=== PATIENT | female | born 1930 ===

== ENCOUNTER 2019-04-02 19:41 | Inpatient (IN) ==
[2019-04-02] MEDS ORDERED: ALBUT/IPRATROP 3MG/0.5MG NEB 3 ML VIAL INH PRN (21:47)
[2019-04-02] MEDS ORDERED: ICU PROTOCOL FOR HYPERGLYCEMIA PRN (21:47)
[2019-04-02] MEDS ORDERED: PIPERACILL/TAZOBAC CONSULT ACTIVE PRN (21:52)
[2019-04-02] MEDS ORDERED: VANCOMYCIN CONSULT ACTIVE PRN (21:52)
--- NOTE | 2019-04-02 21:57 | History & Physical Report ---
Date of Service April 02, 2019 Assessment & Plan (1) Admitted to intensive care unit: Patient is admitted to the intensive care unit with septic shock, acute respiratory failure with hypoxia and multifocal pneumonia. Acute work-up as noted in HPI. (2) Acute respiratory failure with hypoxia: ABG ordered, and ventilator will be adjusted based on results. Present on Admission?: Yes (3) Septic shock: Continue Levophed infusion. Place empirically on vancomycin IV and Zosyn IV. CT of head, chest, abdomen pelvis ordered to look for source. Present on Admission?: Yes (4) Pneumonia: Multifocal pneumonia- Empiric vancomycin IV and Zosyn IV. Continue ventilator management. Serial ABGs. Present on Admission?: Yes (5) Diabetes type 2, uncontrolled: Placing on Accu-Cheks every 4 hours for hyperglycemic protocol Present on Admission?: Yes (6) Hypertension: Holding antihypertensives as patient is hypotensive at this time on Levophed drip Present on Admission?: Yes (7) Hypothyroid: Will place patient on IV levothyroxine in the a.m. Present on Admission?: Yes (8) GERD (gastroesophageal reflux disease): Placed on famotidine 20 mg IV every 12 hours Present on Admission?: Yes (9) Alzheimer disease: Noted Present on Admission?: Yes History of Present Illness Chief Complaint: The patient was accepted as a transfer from [facility] by daytime hospitalist with consult to city dispatcher regarding acute respiratory failure with septic shock on ventilator and Levophed infusion. Primary Care Provider: BRITT JARAMILLO The patient is an 88-year-old female with a past medical history including hypertension, hyperlipidemia, anxiety with depression, hypothyroidism, diabetes mellitus, and GERD who initially presented to [facility] emergency department. There she was found to be in septic shock with acute respiratory failure with hypoxia, was intubated and started on a Levophed drip, had a chest x-ray which suggested pneumonitis, and call was made to [facility] to the hospitalist service, who then verified acceptance of the patient by the city dispatcher to the ICU, and patient was transferred. Upon arrival to [facility], the patient was not nonresponsive, sedated, on ventilator and Levophed infusion. At this time, the following studies were ordered: CBC with differential, chemistry profile, magnesium, troponin, lactic acid, procalcitonin, ABG, stat portable chest x-ray to verify ET placement, CT of head without contrast, CT of the chest without contrast, and CT of abdomen and pelvis without contrast. Patient was empirically placed on vancomycin IV and Zosyn IV and started on a bicarbonate drip due to report of lactic acid prior to transfer of 7.1. Allergies Allergy/AdvReac Type Severity Reaction Status Date / Time clarithromycin [From Biaxin] Allergy Unknown Verified 04/02/19 23:12 shellfish derived Allergy Unknown Verified 04/02/19 23:12 Home Medications Home Medications Medication Instructions Recorded Confirmed Type acetaminophen 650 mg PO Q4 PRN 04/02/19 04/02/19 History amlodipine 5 mg PO DAILY 04/02/19 04/02/19 History aspirin 325 mg PO DAILY 04/02/19 04/02/19 History atorvastatin 20 mg PO HS 04/02/19 04/02/19 History bisacodyl [Dulcolax (bisacodyl)] 10 mg [place] DAILY PRN 04/02/19 04/02/19 History buspirone 5 mg PO BID 04/02/19 04/02/19 History cholecalciferol (vitamin D3) 1,000 unit PO DAILY 04/02/19 04/02/19 History cyanocobalamin (vitamin B-12) 1,000 mcg PO DAILY 04/02/19 04/02/19 History dextromethorphan-guaifenesin 1 tab PO Q12H 04/02/19 04/02/19 History [Mucinex DM] ipratropium-albuterol 3 ml INHALATION Q6 PRN 04/02/19 04/02/19 History levothyroxine 100 mcg PO DAILY 04/02/19 04/02/19 History linagliptin [Tradjenta] 5 mg PO DAILY 04/02/19 04/02/19 History magnesium hydroxide [Milk of 30 ml PO HS PRN 04/02/19 04/02/19 History Magnesia] meclizine 12.5 mg PO Q8 PRN 04/02/19 04/02/19 History omeprazole 20 mg PO DAILY 04/02/19 04/02/19 History ondansetron 4 mg PO Q6H PRN 04/02/19 04/02/19 History quetiapine 200 mg PO TID 04/02/19 04/02/19 History simethicone 160 mg PO BID PRN 04/02/19 04/02/19 History venlafaxine 150 mg PO DAILY 04/02/19 04/02/19 History Past Med/Surg History Medical History (Updated 04/03/19 @ 04:52 by Hank Zavala MD) Alzheimer disease Ambulatory dysfunction Anxiety, generalized Breast cancer Diabetes type 2, uncontrolled GERD (gastroesophageal reflux disease) History of gallbladder disease Hyperlipemia Hypertension Hypothyroid Social History Preferred Language: Welsh Communication Ability: Effective 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 HEENT--PERRL, EOMI, mucous membranes and oropharynx dry. Neck--supple. No JVD. No bruits. Thyroid normal, trachea midline, no adenopathy. Heart--tachycardic. No murmurs, rubs or gallops. Lungs--coarse breath sounds bilaterally. Abdomen--normal bowel sounds and soft. Nontender. Nondistended. Extremities--no cyanosis or clubbing. No edema. Dermatologic--normal skin turgor, normal color, no abnormal lymph nodes, no rash. Neurologic--limited exam Rheumatologic--limited exam Psychiatric--sedated and intubated Code Status & VTE Plan Code Status Full code VTE Prophylaxis Plan VTE Prophylaxis will be ordered: Yes Critical Care Time Critical Care Time: Yes Total Critical Care Time: 50 Total critical care time was 50 minutes PG Care Time/CCT Total # of Minutes Spent Total Time Spent with Patient: Total time spent is greater than 50% in coordination of care (as documented) at patient's floor/unit and/or counseling patient: Critical Care Time: Yes Total Critical Care Time: 50
[2019-04-02] MEDS ORDERED: FAMOTIDINE 20 MG in SYRINGE 3 ML IV SCH (22:00)
[2019-04-02] MEDS ORDERED: NOREPINEPHRINE BIT INJ 8 MG in DEXTROSE 5% 500 ML IV SCH (22:15)
--- NOTE | 2019-04-02 22:26 | XRay Report ---
XR chest 1V portable CLINICAL HISTORY: intubation COMPARISON STUDY: Chest radiograph April 01, 2019 at 6:56 PM. FINDINGS: Tip of nasogastric tube is within the gastric fundus. Tip of endotracheal tube is 1.5 cm ab ove the antoinette. There is no pneumothorax. Mild elevation of the right hemidiaphragm is noted. There a re mild bibasilar opacities. There is no lobar consolidation. Tip of left internal jugular central li ne projects over the proximal SVC or azygos vein. IMPRESSION: 1. Tip of endotracheal tube 1.5 cm above the antoinette. 2. Tip of left internal jugular central line projects over the proximal SVC or azygos vein. No pneumo thorax. 3. Bibasilar opacities which may reflect an infectious process or atelectasis. 4. Suspected trace right pleural effusion. ACT 112: Negative or not required by law. Electronically signed by: Donald Griffith M.D. 04/02/2019 10:24 PM
[2019-04-02] MEDS ORDERED: PATIENT'S ALLERGY INFO NEEDS ENTERED SCH (22:30)
[2019-04-02] MEDS: SODIUM BICARBONATE 8.4% 150 MEQ in WATER, STERILE 1,000 ML IV SCH (22:39)
[2019-04-02] MEDS ORDERED: fentaNYL citrate 100 MCG/2 ML VIAL ONE (22:44)
[2019-04-02] MEDS ORDERED: fentaNYL citrate 100 MCG/2 ML VIAL IV STA (22:46)
--- NOTE | 2019-04-02 22:49 | Critical Care Consultation ---
Date of Consultation April 02, 2019 Assessment & Plan (1) Septic shock: Reason Critically Ill: 88-year-old female admitted for septic shock with acute hypoxic respiratory failure requiring intubation Neuro - Sedated: Propofol and fentanyl drip Unable to assess mental status as patient has received sedation. Patient has history of Alzheimer's dementia. Any encephalopathy would likely be metabolic in nature considering sepsis/infection. Will obtain CT head and ammonia given LFTs for rule out. Cardiac - Septic shockpatient currently on multiple vasopressors, norepinephrine and vasopressin for maps greater than 65 -No known history of heart failure, will obtain transthoracic echocardiogram -A-line inserted for continuous BP monitoring -Lactate 8.3, metabolic acidosis with failed respiratory compensation -will start on bicarb drip, bolusing 500 mL Normosol -Continue broad-spectrum antibiotics, see ID below -Evidence of multisystem organ failure likely related to hypoperfusion -Obtaining CT abdomen, pelvis, chest to evaluate for additional source of infection given significance of sepsis A. fib RVRrate on arrival 140s, EKG confirmed A. fib RVR; no known history -Rate reduced with IV MTP, giving beta-rekha with caution considering hypotension; would proceed with amiodarone drip if need for multiple dose -Patient receiving 500 bolus Normosol, volume status currently hypovolemic -Troponin mildly elevated, likely demand ischemia, no ST elevation on EKG HTN will hold antihypertensives in the setting of hypotension Respiratory - Acute hypoxic respiratory failurelikely secondary to multifocal pneumonia -Patient's med history includes nebs, questionable COPD. No medical history known for respiratory disease, patient non-smoker -We will continue broad-spectrum antibiotics, see ID below -Patient currently intubated: AC VC 24/500/5/50 percent -AB.21//70/11, will adjust vent accordingly and trend ABGs -We will start DuoNeb, IV Solu-Medrol GI - GERDIV Pepcid Transaminitislikely shock liver in the setting of hypotension/septic shock -Patient with history of cholecystitis, cannot rule out this as possible source of infection -Abdominal exam compromised due to AMS/sedation, will obtain CT abdomen and hepatic ultrasound -Trend LFTs, follow-up ammonia RENAL/LYTES - Acute kidney injuryno known history of CKD, no baseline creatinine, CR 2.08 on this admission -Likely ATN secondary to hypotension -We will trend creatinine and monitor strict I's and O's -We will continue IV fluid resuscitation with goal of euvolemia -Would consider transfer for CRRT if progression to acute renal failure -Avoiding nephrotoxins - Foleystrict I's and O's ENDO - History of DM type IIhemoglobin A1c pending, currently euglycemic -ICU hyperglycemic protocol Hypothyroidismcontinue home dose Synthroid 100 mg daily -Follow-up a.m. TSH HEME - H&H stable, monitor with routine CBCs ID - Sepsislikely pulmonary source given CXR and acute respiratory failure -Cannot rule out abdominal source given degree of lactic acid elevation, elevated LFTs, acute cholangitis? -CT chest, abdomen, and pelvis and hepatic ultrasound pending -Lactate 8.3, procalcitonin pending, urinalysis pending, blood cultures pending -Influenza swab pending -MRSA pending -Currently on broad-spectrum antibiotics Zosyn and vancomycin, will narrow the sensitivities LINES/IV ACCESS - CVC, A-line, PIV's, ETT DVT PROPHYLAXIS - SCDs, heparin subcu I have personally spent 85 minutes of critical care time in the direct management of this patient. This is a life/limb threatening event. This includes time spent evaluating patient, direct bedside care, chart review, placing orders, interpretation of diagnostic studies, discussion with consultants, patient, and family members, as well as other required patient management activities. This time is exclusive of all separately billable procedures, and teaching time and separate from and in addition to any other critical care service time. Thank you for allowing us to participate in the care of this patient. Please refer to my attending physician's documentation for any further recommendations. (2) GERD (gastroesophageal reflux disease): (3) Alzheimer disease: (4) Hypothyroid: (5) Hypertension: (6) Diabetes type 2, uncontrolled: (7) Pneumonia: (8) Acute respiratory failure with hypoxia: (9) Multiple organ system failure: Supervising Physician Co-Signing Physician Notes I discussed the plan of care of the patient with Hayder Rosales on the phone, and agree with findings and plan as documented in the note. Patient was transferred from [facility] for ventilatory failure and shock. Patient was on vasopressors. Patient had a CT abdomen pelvis done which showed that patient's gallbladder was contributing to the sepsis. Surgeon Dr. Carson recommended the patient be transferred to a tertiary care center as patient was too unstable for surgery and she will need a cholecystostomy. Patient was eventually transferred to [facility] [place]. Family was made aware. I did not personally see the patient she was already transferred out of the ICU before. Case was discussed on the phone with me. History of Present Illness Attending Physician: Farhan Holguin, DO History of Present Illness Patient is an 88-year-old female who was a transfer from [facility] for decompensation of acute hypoxic respiratory failure requiring intubation. Patient has past medical history of Alzheimer's dementia, breast cancer, diabetes type 2, GERD, HLD, HTN, psychotic disorder with delusions. She currently lives at a snf and has been nonambulatory and incontinent since January when she was hospitalized for urinary tract infection. Daughter reports that the patient is normally verbal but confused. She was initially seen at outside hospital for shortness of breath and CXR was consistent with pneumonia and was transferred after intubation. On arrival to the ICU, patient was non-arousable but had been given ketamine in route. She was intubated and tachypneic and requiring norepinephrine drip for BP support. She had a central line on arrival and arterial line was soon placed. Repeat chest x-ray consistent with multifocal pneumonia and lactate elevated to 8. Will obtain CT head, chest, abdomen and pelvis. I had a discussion with the family in regard to CODE STATUS and patient prognosis. They are aware that the patient has a poor prognosis and is in multiorgan failure but would like to proceed as a full code. Patient is critically ill and to remain in ICU for now for further management. Allergies Allergy/AdvReac Type Severity Reaction Status Date / Time clarithromycin [From Biaxin] Allergy Unknown Verified 04/02/19 23:12 shellfish derived Allergy Unknown Verified 04/02/19 23:12 Home Medications Home Medications Medication Instructions Recorded Confirmed Type Mucinex DM 1 tab PO Q12H 04/02/19 04/02/19 History Tradjenta 5 mg PO DAILY 04/02/19 04/02/19 History acetaminophen 650 mg PO Q4 PRN 04/02/19 04/02/19 History aspirin 325 mg PO DAILY 04/02/19 04/02/19 History atorvastatin 20 mg PO HS 04/02/19 04/02/19 History bisacodyl [Dulcolax (bisacodyl)] 10 mg [place] DAILY PRN 04/02/19 04/02/19 History buspirone 5 mg PO BID 04/02/19 04/02/19 History cholecalciferol (vitamin D3) 1,000 unit PO DAILY 04/02/19 04/02/19 History cyanocobalamin (vitamin B-12) 1,000 mcg PO DAILY 04/02/19 04/02/19 History ipratropium-albuterol 3 ml INHALATION Q6 PRN 04/02/19 04/02/19 History levothyroxine 100 mcg PO DAILY 04/02/19 04/02/19 History magnesium hydroxide [Milk of 30 ml PO HS PRN 04/02/19 04/02/19 History Magnesia] meclizine 12.5 mg PO Q8 PRN 04/02/19 04/02/19 History omeprazole 20 mg PO DAILY 04/02/19 04/02/19 History ondansetron 4 mg PO Q6H PRN 04/02/19 04/02/19 History quetiapine 200 mg PO TID 04/02/19 04/02/19 History simethicone 160 mg PO BID PRN 04/02/19 04/02/19 History venlafaxine 150 mg PO DAILY 04/02/19 04/02/19 History heparin, porcine (PF) 5,000 unit SUBCUT Q12 #0.5 ml 04/03/19 Rx ipratropium-albuterol 3 ml INHALATION Q4H PRN #3 ml 04/03/19 Rx ipratropium-albuterol 3 ml NEB Q4R PRN #3 ml 04/03/19 Rx Patient History Medical History (Updated 04/03/19 @ 04:52 by Hank Zavala MD) Alzheimer disease Ambulatory dysfunction Anxiety, generalized Breast cancer Diabetes type 2, uncontrolled GERD (gastroesophageal reflux disease) History of gallbladder disease Hyperlipemia Hypertension Hypothyroid Social History Preferred Language: Yoruba Communication Ability: Effective 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 Beliefs That Will Affect Care: None Current Living Situation: Senior Living Feels Safe at Home: Declines to Answer Smoking Status: Unknown if ever smoked Hx Alcohol Use: No Hx Substance Use: No Review of Systems Review of Systems: Unobtainable due to endotracheal tube and Unobtainable due to reduced consciousness Physical Exam Eyes: PERRL, conjunctivae normal, anicteric sclerae ENMT: external ear and nose normal, oropharynx normal Neck: trachea midline, no thyromegaly Respiratory: Patient intubated, symmetrical chest wall movement, bilateral lung sounds coarse and rhonchi in all monteiro, patient tachypneic Cardiovascular: Patient Jay linares RVR on monitor, irregularly irregular rhythm, no edema, no JVD, pedal and radial pulses +1 bilaterally, good peripheral perfusion Gastrointestinal (Abdomen): Abdomen distended, semifirm, nontender, bowel sounds hypoactive Skin: no rashes, warm and dry Neurologic: Unable to assess Psychiatric: Unable to assess Genitourinary: Verónica present Coding Level of Care Code Critical Care 1st 30-74 mins Diagnoses Septic shock A41.9; R65.21 GERD (gastroesophageal reflux disease) K21.9 Alzheimer disease G30.9; F02.80 Hypothyroid E03.9 Hypertension I10 Diabetes type 2, uncontrolled E11.65 Pneumonia J18.9 Acute respiratory failure with hypoxia J96.01 Multiple organ system failure Time Spent (min) 85
--- NOTE | 2019-04-02 22:52 | Procedure Note ---
Procedure Note Date of Service April 02, 2019 Note ARTERIAL LINE PROCEDURE NOTE: Procedure: Arterial Line Placement Attending: Dr. Juan Antonio Ambriz Provider: RAMIREZ Mendez Indication: Monitoring on Pressors Anesthesia: None Line was placed emergently with consent implied. A time-out was completed verifying correct patient, procedure, site, positioning, and implant(s) or special equipment if applicable. Allens test was performed to ensure adequate perfusion. Patients right wrist was prepped and draped in the usual sterile fashion. Ultrasound guidance was used to aid needle placement. A 20g Arrow arterial line was introduced into the right radial artery. Catheter was threaded, and the needle was removed with appropriate blood return. Good waveform was observed. The patient tolerated the procedure well. Confirmation of placement with ultrasound. Blood Loss: Minimal Complications: None Procedural Ultrasound Guidance: Procedure Date: 04/02/2019 Indication: Arterial line placement Attending: Dr. Juan Antonio Ambriz Provider: RAMIREZ Mendez Artery Identified: YES Line confirmed in Artery with ultrasound: Yes Complications: NONE Patient tolerated procedure: WELL Coding CPT Codes Tubes, Drains, and Vasc Access - Tubes, Drains, and Vasc Access: [id number] Place Catheter In Artery ([id number]) Tubes, Drains, and Vasc Access - Tubes, Drains, and Vasc Access: [id number] Ultrasound Guidance For Vascular ([id number])
[2019-04-02 22:54] LABS: Hematocrit (blood only) 35.5 % (37-47); Hemoglobin 11.5 g/dL (12.0-16.0); Mean Corpuscular Hemoglobin 32.4 pg (25-34); Mean Platelet Volume 10.9 fL (7.4-10.4); Platelet Count 254 K/uL (130-400); RDW Coefficient of Variation 14.5 % (11.5-14.5); RDW Standard Deviation 53.5 fL (36.4-46.3); Red Blood Count 3.55 M/uL (4.2-5.4); White Blood Count 7.57 K/uL (4.8-10.8)
[2019-04-02] MEDS ORDERED: PROPOFOL 1,000 MG/100 ML VIAL IV SCH (23:03)
[2019-04-02] MEDS ORDERED: fentaNYL citrate 100 MCG/2 ML VIAL IV PRN (23:03)
[2019-04-02] MEDS ORDERED: fentaNYL DRIP 1,250 MCG/250 ML BAG IV SCH (23:03)
[2019-04-02 23:04] LABS: Mean Corpuscular Hgb Conc 32.4 g/dL (32-36)
[2019-04-02 23:08] LABS: iSTAT Arterial Blood Gas HCO3 11 meg/L (19-24); iSTAT Arterial Blood Gas pCO2 27 mmHg (35-46); iSTAT Arterial Blood Gas pH 7.21 (7.35-7.45); iSTAT Arterial Blood Gas pO2 70 mmHg (80-95); iSTAT Carbon Dioxide 12 mEq/l (24-31); iSTAT FiO2 40 %; iSTAT Site Art Line
[2019-04-02 23:15] LABS: BUN Creatinine Ratio 20.7 (10-20); Calcium 7.5 mg/dl (8.5-10.1); Creatinine Clr Calc Pharmacy 18.6 ml/min; Est GFR (African American) 24.3; Magnesium 1.9 mg/dl (1.8-2.4); Potassium 3.8 mmol/L (3.5-5.1)
[2019-04-02] MEDS ORDERED: AMIODARONE 360MG / 200ML D5W IV ONE (23:22)
[2019-04-02] MEDS ORDERED: AMIODARONE 150MG / 100ML D5W IV ONE (23:22)
[2019-04-02 23:23] LABS: Albumin Globulin Ratio 0.5 (0.9-2); Bilirubin,Total 2.2 mg/dl (0.2-1); Globulin 4.1 gm/dl (2.5-4.0); Total Protein 6.1 gm/dl (6.4-8.2); Troponin I 0.122 ng/ml (0-0.045)
[2019-04-02] MEDS ORDERED: METOPROLOL TARTRATE 1 MG/ML VIAL IV STA (23:23)
[2019-04-02] MEDS ORDERED: METOPROLOL TARTRATE 1 MG/ML VIAL IV ONE (23:23)
[2019-04-02] MEDS ORDERED: PIPERACILLIN/TAZOBACTAM 4.5 GM in DEXTROSE 5% 100 ML IV ONE (23:30)
[2019-04-02] MEDS ORDERED: NORMOSOL-R 1,000 ML IV SCH (23:30)
[2019-04-02] MEDS ORDERED: VANCOMYCIN HCL 1,250 MG in SODIUM CHLORIDE 0.9% 250 ML IV ONE (23:30)
[2019-04-02] MEDS ORDERED: NORMOSOL-R 500 ML IV ONE (23:32)
[2019-04-02] MEDS ORDERED: VASOPRESSIN 20 UNITS in 0.9 % SODIUM CHLORIDE 100 ML IV SCH (23:32)
[2019-04-02 23:39] LABS: Basophils # (auto) 0.01 K/uL (0-0.2); Basophils % (auto) 0.1 %; Echinocytes 1+; Giant Platelets 1+; Immature Granulocytes # (auto) 0.02 K/uL (0.00-0.02); Immature Granulocytes % (auto) 0.3 %; Lymphocytes # (auto) 0.51 K/uL (1.2-3.4); Lymphocytes % (auto) 6.7 %; Monocytes # (auto) 0.38 K/uL (0.11-0.59); Neutrophils # (auto) 6.65 K/uL (1.4-6.5); Neutrophils % (auto) 87.9 %
[2019-04-03] MEDS ORDERED: ALBUT/IPRATROP 3MG/0.5MG NEB 3 ML VIAL NEB PRN (00:54)
[2019-04-03] MEDS ORDERED: methylPREDNISolone 40 MG in SYRINGE 0 ML IV STA (00:54)
[2019-04-03 02:42] LABS: Influenza A virus by PCR Neg for Influ A (Neg); Influenza B virus by PCR Neg for Influ B (Neg)
[2019-04-03 02:43] LABS: iSTAT Arterial Blood Gas HCO3 12 meg/L (19-24); iSTAT Arterial Blood Gas pCO2 26 mmHg (35-46); iSTAT Arterial Blood Gas pH 7.28 (7.35-7.45); iSTAT Arterial Blood Gas pO2 84 mmHg (80-95); iSTAT Carbon Dioxide 13 mEq/l (24-31); iSTAT FiO2 60 %; iSTAT Site Art Line
--- NOTE | 2019-04-03 03:38 | Surgery Consultation ---
Date of Consultation April 03, 2019 Assessment & Plan (1) Multiple organ system failure: pt is a 88 year-old female who was admitted to ICU for acute respiratory failure , multiple organs failure, IMP: acute respiratory failure, multiple organs failure, cholelithiasis, cholangitis base on pt's comorbidity, pt's prognosis is poor, high risks for surgery, D/W surgery treatment option, percutaneous cholecystostomy drainage by interventional radiologist, pt's family members request to transfer higher level care, D/W ICU attending. GI consult for possible ERCP, bedside U/S study for liver and gallbladder repeat labs in 6 hours iv antibiotic will F/U (2) Acute respiratory failure with hypoxia: (3) Septic shock: (4) Cholelithiasis: (5) Cholangitis: History of Present Illness Attending Physician: Farhan Holguin, DO History of Present Illness Patient is an 88-year-old female who was a transfer from [facility] for decompensation of acute hypoxic respiratory failure requiring intubation. Patient has past medical history of Alzheimer's dementia, breast cancer, diabetes type 2, GERD, HLD, HTN, psychotic disorder with delusions. She currently lives at a long term and has been nonambulatory and incontinent since January when she was hospitalized for urinary tract infection. Daughter reports that the patient is normally verbal but confused. She was initially seen at outside hospital for shortness of breath and CXR was consistent with pneumonia and was transferred after intubation. On arrival to the ICU, patient was non-arousable but had been given ketamine in route. She was intubated and tachypneic and requiring norepinephrine drip for BP support. She had a central line on arrival and arterial line was soon placed. Repeat chest x-ray consistent with multifocal pneumonia and lactate elevated to 8. Will obtain CT head, chest, abdomen and pelvis. I had a discussion with the family in regard to CODE STATUS and patient prognosis. They are aware that the patient has a poor prognosis and is in multiorgan failure but would like to proceed as a full code. Patient is critically ill and to remain in ICU for now for further management. I ( Casa aCrson MD) got a call for consult cholelithiasis. I reviewed pt's H/P, labs, CT scan at pt's bedside with pt's daughter and son. pt is intubated now. Allergies Allergy/AdvReac Type Severity Reaction Status Date / Time clarithromycin [From Biaxin] Allergy Unknown Verified 04/02/19 23:12 shellfish derived Allergy Unknown Verified 04/02/19 23:12 Home Medications Home Medications Medication Instructions Recorded Confirmed Type acetaminophen 650 mg PO Q4 PRN 04/02/19 04/02/19 History amlodipine 5 mg PO DAILY 04/02/19 04/02/19 History aspirin 325 mg PO DAILY 04/02/19 04/02/19 History atorvastatin 20 mg PO HS 04/02/19 04/02/19 History bisacodyl [Dulcolax (bisacodyl)] 10 mg ND DAILY PRN 04/02/19 04/02/19 History buspirone 5 mg PO BID 04/02/19 04/02/19 History cholecalciferol (vitamin D3) 1,000 unit PO DAILY 04/02/19 04/02/19 History cyanocobalamin (vitamin B-12) 1,000 mcg PO DAILY 04/02/19 04/02/19 History dextromethorphan-guaifenesin 1 tab PO Q12H 04/02/19 04/02/19 History [Mucinex DM] ipratropium-albuterol 3 ml INHALATION Q6 PRN 04/02/19 04/02/19 History levothyroxine 100 mcg PO DAILY 04/02/19 04/02/19 History linagliptin [Tradjenta] 5 mg PO DAILY 04/02/19 04/02/19 History magnesium hydroxide [Milk of 30 ml PO HS PRN 04/02/19 04/02/19 History Magnesia] meclizine 12.5 mg PO Q8 PRN 04/02/19 04/02/19 History omeprazole 20 mg PO DAILY 04/02/19 04/02/19 History ondansetron 4 mg PO Q6H PRN 04/02/19 04/02/19 History quetiapine 200 mg PO TID 04/02/19 04/02/19 History simethicone 160 mg PO BID PRN 04/02/19 04/02/19 History venlafaxine 150 mg PO DAILY 04/02/19 04/02/19 History Patient History Medical History (Updated 04/03/19 @ 03:43 by Casa Carson MD) Alzheimer disease Ambulatory dysfunction Anxiety, generalized Breast cancer Diabetes type 2, uncontrolled GERD (gastroesophageal reflux disease) History of gallbladder disease Hyperlipemia Hypertension Hypothyroid Social History Preferred Language: Malay Communication Ability: Effective Aids Nurse Required: No Beliefs That Will Affect Care: None Current Living Situation: Detention Other Information That Helps Us Care for You: No Feels Safe at Home: Declines to Answer Smoking Status: Unknown if ever smoked Hx Alcohol Use: No Hx Substance Use: No Review of Systems Review of Systems: All systems reviewed & are unremarkable except as noted in HPI & below DM, Alzheimer disease Physical Exam Constitutional: pt is intubated on vent Neck: trachea midline, no thyromegaly Respiratory: normal respiratory effort, lungs clear to auscultation pt is intubated Cardiovascular: RRR, no murmur, no edema Gastrointestinal (Abdomen): Percussion/Palpation: abdomen soft no distend, BS + Skin: no rashes, warm and dry Results & Data Vital Signs (Past 12 Hours) Vital Signs Pulse Resp BP Pulse Ox 04/03/19 00:56 121 H 30 H 98 04/02/19 23:47 153 H 110/58 L 04/02/19 23:38 141 H 30 H 94 04/02/19 23:31 158 H 24 90 Laboratory Results Abnormal lab results 04/02/19 04/02/19 04/02/19 Range/Units 22:00 22:37 22:37 RBC 3.55 L (4.2-5.4) M/uL Hgb 11.5 L (12.0-16.0) g/dL Hct 35.5 L (37-47) % RDW Std Deviation 53.5 H (36.4-46.3) fL MPV 10.9 H (7.4-10.4) fL Neut # (Auto) 6.65 H (1.4-6.5) K/uL Lymph # (Auto) 0.51 L (1.2-3.4) K/uL POC pH (7.35-7.45) POC pCO2 (35-46) mmHg POC pO2 (80-95) mmHg POC HCO3 (19-24) veronica/L POC Total CO2 (24-31) mEq/l POC Base Excess (-9-1.8) veronica/L Chloride 110 H (98-107) mmol/L Carbon Dioxide 13 L (21-32) mmol/L Anion Gap 17.0 H (3-11) BUN 42 H (7-18) mg/dl Creatinine 2.05 H (0.6-1.2) mg/dl BUN/Creatinine Ratio 20.7 H (10-20) Glucose 115 H (70-99) mg/dl POC Glucose (other) (70-99) mg/dl Lactate (0.4-2.0) mmol/L Calcium 7.5 L (8.5-10.1) mg/dl Total Bilirubin 2.2 H (0.2-1) mg/dl AST 1324 H (15-37) U/L ALT 643 H (12-78) U/L Alkaline Phosphatase 339 H (45-117) U/L Troponin I 0.122 H* (0-0.045) ng/ml Total Protein 6.1 L (6.4-8.2) gm/dl Albumin 2.0 L (3.4-5.0) gm/dl Globulin 4.1 H (2.5-4.0) gm/dl Albumin/Globulin Ratio 0.5 L (0.9-2) Lipase 659 H (73-393) U/L Procalcitonin (0-0.5) ng/ml Nasal Screen MRSA (PCR) Positive A (Negative) 04/02/19 04/02/19 04/02/19 Range/Units 22:37 22:40 22:53 RBC (4.2-5.4) M/uL Hgb (12.0-16.0) g/dL Hct (37-47) % RDW Std Deviation (36.4-46.3) fL MPV (7.4-10.4) fL Neut # (Auto) (1.4-6.5) K/uL Lymph # (Auto) (1.2-3.4) K/uL POC pH 7.21 L (7.35-7.45) POC pCO2 27 L (35-46) mmHg POC pO2 70 L (80-95) mmHg POC HCO3 11 L (19-24) veronica/L POC Total CO2 12 L (24-31) mEq/l POC Base Excess -17.0 L (-9-1.8) veronica/L Chloride (98-107) mmol/L Carbon Dioxide (21-32) mmol/L Anion Gap (3-11) BUN (7-18) mg/dl Creatinine (0.6-1.2) mg/dl BUN/Creatinine Ratio (10-20) Glucose (70-99) mg/dl POC Glucose (other) (70-99) mg/dl Lactate 8.3 H* (0.4-2.0) mmol/L Calcium (8.5-10.1) mg/dl Total Bilirubin (0.2-1) mg/dl AST (15-37) U/L ALT (12-78) U/L Alkaline Phosphatase (45-117) U/L Troponin I (0-0.045) ng/ml Total Protein (6.4-8.2) gm/dl Albumin (3.4-5.0) gm/dl Globulin (2.5-4.0) gm/dl Albumin/Globulin Ratio (0.9-2) Lipase (73-393) U/L Procalcitonin 23.72 H (0-0.5) ng/ml Nasal Screen MRSA (PCR) (Negative) 04/02/19 04/03/19 Range/Units 23:52 02:29 RBC (4.2-5.4) M/uL Hgb (12.0-16.0) g/dL Hct (37-47) % RDW Std Deviation (36.4-46.3) fL MPV (7.4-10.4) fL Neut # (Auto) (1.4-6.5) K/uL Lymph # (Auto) (1.2-3.4) K/uL POC pH 7.28 L (7.35-7.45) POC pCO2 26 L (35-46) mmHg POC pO2 (80-95) mmHg POC HCO3 12 L (19-24) veronica/L POC Total CO2 13 L (24-31) mEq/l POC Base Excess -15.0 L (-9-1.8) veronica/L Chloride (98-107) mmol/L Carbon Dioxide (21-32) mmol/L Anion Gap (3-11) BUN (7-18) mg/dl Creatinine (0.6-1.2) mg/dl BUN/Creatinine Ratio (10-20) Glucose (70-99) mg/dl POC Glucose (other) 131 H (70-99) mg/dl Lactate (0.4-2.0) mmol/L Calcium (8.5-10.1) mg/dl Total Bilirubin (0.2-1) mg/dl AST (15-37) U/L ALT (12-78) U/L Alkaline Phosphatase (45-117) U/L Troponin I (0-0.045) ng/ml Total Protein (6.4-8.2) gm/dl Albumin (3.4-5.0) gm/dl Globulin (2.5-4.0) gm/dl Albumin/Globulin Ratio (0.9-2) Lipase (73-393) U/L Procalcitonin (0-0.5) ng/ml Nasal Screen MRSA (PCR) (Negative) Diagnostic Findings CT scan abd + pelvis- IMP: cholelithiasis with gallbladder distention, complex left adnexal mass, complex right renal mass.
[2019-04-03 04:33] LABS: Hematocrit (blood only) 34.1 % (37-47); Hemoglobin 10.9 g/dL (12.0-16.0); Mean Corpuscular Hemoglobin 31.6 pg (25-34); Mean Corpuscular Volume 98.8 fL (80-100); Mean Platelet Volume 10.9 fL (7.4-10.4); Platelet Count 229 K/uL (130-400); RDW Coefficient of Variation 14.5 % (11.5-14.5); RDW Standard Deviation 52.5 fL (36.4-46.3); Red Blood Count 3.45 M/uL (4.2-5.4); White Blood Count 6.44 K/uL (4.8-10.8)
[2019-04-03 04:42] LABS: INR 1.6 (0.9-1.1); Partial Thromboplastin Ratio 1.5; Partial Thromboplastin Time 40.5 Seconds (21.0-31.0); Prothrombin Time 15.6 Seconds (9.0-12.0)
[2019-04-03 04:56] LABS: Albumin Level 1.8 gm/dl (3.4-5.0); BUN Creatinine Ratio 22.3 (10-20); Bilirubin Direct 2.5 mg/dl (0-0.2); Calcium 7.5 mg/dl (8.5-10.1); Creatinine Clr Calc Pharmacy 19.3 ml/min; Est GFR (African American) 25.3; Est GFR (Non-African American) 21.9; Magnesium 2.1 mg/dl (1.8-2.4)
[2019-04-03 05:06] LABS: Basophils # (auto) 0.01 K/uL (0-0.2); Basophils % (auto) 0.2 %; Echinocytes 1+; Immature Granulocytes # (auto) 0.01 K/uL (0.00-0.02); Immature Granulocytes % (auto) 0.2 %; Lymphocytes # (auto) 0.42 K/uL (1.2-3.4); Lymphocytes % (auto) 6.5 %; Monocytes # (auto) 0.37 K/uL (0.11-0.59); Monocytes % (auto) 5.7 %; Neutrophils # (auto) 5.63 K/uL (1.4-6.5); Neutrophils % (auto) 87.4 %
[2019-04-03 05:09] LABS: Bilirubin,Total 3.5 mg/dl (0.2-1); Phosphorus 5.3 mg/dl (2.5-4.9); Thyroid Stimulating Hormone 0.904 uIu/ml (0.300-4.500); Total Protein 5.3 gm/dl (6.4-8.2)
[2019-04-03 05:34] LABS: Estimated Average Glucose 105 mg/dl; Hemoglobin A1C 5.3 % (4.5-5.6)
[2019-04-03] MEDS: SODIUM BICARBONATE 8.4% 150 MEQ in WATER, STERILE 1,000 ML IV SCH (06:23)
--- NOTE | 2019-04-03 06:37 | Ultrasound Report ---
US duplex portal hepatic veins HISTORY: 88 years-old Female elevated LFTs acutely elevated LFTs COMPARISON: CT abdomen and pelvis of same day. TECHNIQUE: Multiple real-time sonographic images of the hepatic vasculature was obtained assessing gr ayscale appearance, color and spectral flow FINDINGS: Hepatic and portal veins are patent. Phasic waveforms within the hepatic veins. The portal vein demon strates hepatopedal flow. Limited study secondary to patient condition. Partially obscuring bowel gas also limits the study. IMPRESSION: Patent hepatic and portal veins. ACT 112: Negative or not required by law. The above report was generated using voice recognition software. It may contain grammatical, syntax o r spelling errors. Electronically signed by: Rhett Campuzano M.D. 04/03/2019 6:36 AM
--- NOTE | 2019-04-03 06:39 | CT Scan Report ---
CT head/brain wo con CLINICAL HISTORY: lactic acidosis, respiratory failure CHANGE IN MENTAL STATUS COMPARISON STUDY: No previous studies for comparison. TECHNIQUE: Axial CT of the brain is performed from the vertex to the skull base. IV contrast was not administered for this examination. A dose lowering technique was utilized adhering to the principles of ALARA. CT DOSE: FINDINGS: No intra or extra-axial mass lesions are visualized. There is no CT evidence of acute cortical infarc tion. There is no evidence of midline shift. There is no acute hemorrhage. No calvarial fractures ar e visualized. There are moderate white matter hypodensities likely on a small vessel basis. There is no evidence of pathologic ventricular dilatation. There is a right maxillary sinus air-fluid level. There is a right mastoid effusion. IMPRESSION: 1. No acute intracranial findings 2. Right maxillary sinus air-fluid level. Right mastoid effusion. Correlate clinically in regards to acute sinusitis. ACT 112: Negative or not required by law. Electronically signed by: Everardo Briceno M.D. 04/03/2019 6:38 AM
--- NOTE | 2019-04-03 06:47 | Communication Note ---
Date of Service: April 03, 2019 Update from previous addendum. [facility] was contacted, considering that patient has previously been treated at [place] and has [facility] insurance. I spoke with the nurse practitioner for the ICU and they agreed to accept the patient. Family was then notified of potential change and agreed that would [facility] Considering there would not be no delay in transfer decision was made to proceed with transfer to [facility]. Patient now transferred via [facility] to [facility]
--- NOTE | 2019-04-03 07:01 | CT Scan Report ---
CT chest wo con CLINICAL HISTORY: 88 years-old Female presenting with respiratory failure on vent. TECHNIQUE: Multidetector CT imaging of the chest was performed without the use of intravenous contras t. IV contrast: None. One or more dose lowering techniques were used consistent with the principles o f ALARA (as low as reasonably achievable), including automatic exposure control, mA or kV adjustment to individual patient size, and/or use of iterative reconstruction. COMPARISON: Chest x-ray from the previous day. CT DOSE (mGy.cm): The estimated cumulative dose is 1441.38 mGy.cm. FINDINGS: Operational Intelligence Analyst topogram: Endotracheal tube terminates in the midthoracic trachea. Nasogastric tube terminates in the gastric fundus. Left internal jugular central venous catheter terminates at the upper SVC. Soft tissues: Nodular enlargement of the left lobe of the thyroid. The right lobe may be absent. Left internal jugular central venous catheter terminates at the upper SVC. Endotracheal tube terminates i n the midthoracic trachea. Nasogastric tube terminates at the gastric body/fundus, sidehole within th e gastric lumen. No axillary, supraclavicular, or mediastinal lymphadenopathy. Evaluation of the jess limited without intravenous contrast. Extensive atherosclerosis of the thoracic aorta. Top normal he art size. Severe coronary artery and moderate aortic valve calcification. No pericardial or pleural e ffusion. Trace perihepatic ascites. The gallbladder is distended. Gallstones suspected. Probable hepa tic cyst in the left hepatic lobe. Lungs and airways: No pneumothorax. Allowing for the expiratory phase of respiration, central airways patent. Respiratory motion artifact degrades evaluation of the lung parenchyma. There is diffuse bro nchiectasis. Prominent mosaic attenuation. Pulmonary arteries are not significantly enlarged relative to adjacent bronchi. Trace interlobular septal thickening. Extensive dense peribronchovascular conso lidation with a lower lobe predominance. Musculoskeletal: Degenerative changes of the spine. Osteopenia. Moderate compression deformity of T5 with mild compression deformities of T1, T2, and T10-L1. IMPRESSION: 1. Extensive bronchiectasis with lower lobe predominant peribronchovascular consolidation. These fin dings favor cryptogenic organizing pneumonia or chronic aspiration. 2. Evaluation limited by respiratory motion artifact. 3. Appropriately positioned lines and tubes. 4. Distended gallbladder with suspected gallstones. If there is concern for cholecystitis, right upp er quadrant ultrasound would be recommended. 5. Multiple compression deformities of the thoracic spine with underlying osteopenia. These are age indeterminate. ACT 112: Negative or not required by law. Electronically signed by: Long Dave M.D. 04/03/2019 7:00 AM
--- NOTE | 2019-04-03 07:24 | CT Scan Report ---
ABDOMEN AND PELVIS CT WITHOUT CONTRAST HISTORY: Acute respiratory failure with lactic acidosis lactic acidosis, respiratory failure TECHNIQUE: Multiaxial CT images of the abdomen and pelvis were performed without contrast. A dose lo wering technique was utilized adhering to the principles of ALARA. COMPARISON STUDY: Chest CT of same day FINDINGS: Bibasilar bronchiectasis with bronchovascular distribution of consolidation is partially imaged. Mosa ic attenuation suggests associated air trapping. Subpleural reticular opacities suggest concomitant f ibrotic changes. Trace right pleural effusion is suggested. Limited exam without the use of IV contra st, mild patient motion and positioning of the upper extremities. Imaged inferior cardiac chambers ar e mildly enlarged. Extensive coronary arterial, thoracic and abdominal with branch vessel calcificati ons are noted. Abdominal aortic tortuosity. Irregular calcifications within the infrarenal abdominal aorta are noted. Gallbladder is distended. Increased attenuation layering within the gallbladder lumen suggests sludge versus cholelithiasis. Additionally, there is equivocal gallbladder wall thickening with trace peric holecystic edema. 3 mm area of increased attenuation within the region of the common bile duct may re flect choledocholithiasis. Mild prominence of the common bile duct. 1.4 cm hypodensity of the left he patic lobe on image 22 series 5 is suggestive of a probable cyst. Coarse calcification of the posteri or right hepatic lobe. Diminutive spleen. Mild generalized pancreatic atrophy. Mild thickening of the adrenal glands. Mild nonspecific bilateral perinephric stranding. Complex cystic lesion of the inferior pole right ki dney measures up to 4.4 x 4.5 x 4.5 cm and contains thin partially calcified septations along its sup erior margin. 1.7 cm cyst of the interpolar right kidney. No ureteral calculi or obstructive uropathy . There is a large bilobed mixed attenuating prominently fatty attenuating structure of the left onel pelvis measuring up to 6.1 x 5.7 x 8.3 cm with soft tissue attenuation and areas of marginal calcific ation suggestive of a dropped cell tumor. Sanches catheter noted within a decompressed urinary bladder. Mild wall thickening of the distal esophagus. Small hiatal hernia. Enteric tube distal tip terminates within the proximal to mid gastric body. There are several nondilated fluid-filled loops of small bonnie wel. Moderate fecal retention. Mild wall thickening of the ascending and transverse colon with mild p ericolonic stranding. Appendix not visualized. Trace abdominal pelvic ascites. Mild diastases recti. Demineralized appearance of the bones. Degenerative changes of the spine, pelvis and hips. 40% superi or endplate compression deformity of the L1 vertebral body with 25% superior endplate compression def ormities at T10, T11 and T12 are age-indeterminate however likely chronic. Mild lumbar levoscoliosis. IMPRESSION: 1. Gallbladder distention with equivocal wall thickening and cholelithiasis. Correlate with right upp er quadrant abdominal ultrasound and clinical evaluation to exclude acute cholecystitis. Additionally , there is equivocal choledocholithiasis. Finding was called/faxed to the emergency department at april e of dictation. 2. Mild wall thickening of the ascending and transverse colon may be secondary to partial distention versus a nonspecific colitis. This finding was also called/faxed to the emergency department at time of dictation. 3. Moderate fecal retention. 4. Trace right pleural effusion with trace abdominal pelvic ascites. 5. Bibasilar bronchiectasis with bibasilar consolidation. Please refer to chest CT of same day for fu rther details. 6. Complex cystic lesion of the inferior pole right kidney measuring up to 4.5 cm is incompletely jose rafael racterized on this noncontrast study. Correlate with prior imaging. 7. 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 8. Additional findings as above. ACT 112: Negative or not required by law. The above report was generated using voice recognition software. It may contain grammatical, syntax o r spelling errors. Electronically signed by: Rhett Campuzano M.D. 04/03/2019 7:23 AM
[2019-04-03] MEDS ORDERED: PIPERACILLIN/TAZOBACTAM 4.5 GM in DEXTROSE 5% 100 ML IV SCH (08:00)
[2019-04-03] MEDS ORDERED: HEPARIN SOD 5,000 UNIT/0.5 ML VIAL SQ SCH (09:00)
--- NOTE | 2019-04-14 11:31 | Coding Query ---
CODING QUERY To promote full compliance with coding requirements relating to patient care, provider participation is requested in all cases of campus aide uncertainty. Please assist us with the question(s) below: Coding Question(s): There is documentation of Acute Respiratory Failure with Hypoxia and documentation of Septic Shock. Please specify below, in your clinical opinion, the association, if any, between the two diagnosis. ( x) Acute Respiratory Failure with Hypoxia is likely associated with/due to Septic Shock ( ) Acute Respiratory Failure with Hypoxia is Not likely associated with/due to Septic Shock Physician's Response(s): Thank you Maribell Alcocer Principal Diagnosis: "that condition established after study, to be chiefly responsible for occasioning the admission of the patient to the hospital for care." Co-Existing Principal Diagnosis: "when two or more diagnoses equally meet the criteria for principal diagnosis as determined by the circumstances of admission, diagnostic work up, and/or therapy provided, and the Alphabetic Index, Tabular List, or another coding guideline does not provide sequencing direction, any one of the diagnoses may be sequenced first." "When the physician has documented what appears to be a current diagnosis in the body of the record, but has not included the diagnosis in the final diagnostic statement, the physician should be asked whether the diagnosis should be added." ([facility] 2 QTR90. p3-4) [facility]
== END 2019-04-03 07:10 | disposition short-term general hospital (02) | DRG 871 ==
LOC: 1E 21:44